=== PATIENT | male | born 1945 | race Two or more races ===

== ENCOUNTER 2024-04-26 10:22 | Emergency (ER) | payer OTHER, SELFPAY ==
[2024-04-26 10:23] VITALS: BMI 29.0
--- NOTE | 2024-04-26 10:36 | EKG_ITS ---
[facility] Test Date: 2024-04-26 Pat Name: GARRY DAMON Department: Room: - Gender: Male Museum Technician: : 1945 Requested By: Rj Rogel (DAVID) Order Number: [id number] Reading MD: Rj Rogel (STUDENT MINISTRY PASTOR) Measurements Intervals [place] Rate: 89 P: 46 [place]: 179 QRS: 266 QRSD: 143 T: 32 QT: 374 QTc: 455 Interpretive Statements SINUS RHYTHM MARKED RIGHT AXIS DEVIATION [QRS AXIS > 100] INTRAVENTRICULAR CONDUCTION DELAY [130+ ms QRS DURATION] No previous ECG available for comparison /store/S0/[id number]
[2024-04-26 10:48] VITALS: BP 133/82; PULSE 90; RESP 18; TEMP 36.7; O2SAT 97; BMI 28.5
--- NOTE | 2024-04-26 10:54 | PD.EDRME ---
Rapid Medical Screening Exam RME Arrival date/time: 04/26/24 10:22 79-year-old male presents the emergency department complains of dizziness and syncopal episode Chief Complaint: Syncope / Near Syncope Vital signs: Vital Signs Temperature 98.1 F 04/26/24 10:48 Pulse Rate 90 04/26/24 10:48 Respiratory Rate 18 04/26/24 10:48 Blood Pressure 133/82 H 04/26/24 10:48 Pulse Oximetry (%) 97 04/26/24 10:48 Oxygen Delivery Method Room Air 04/26/24 10:48
--- NOTE | 2024-04-26 10:55 | XR_ITS ---
Examination: CT brain head without contrast. 2-D sagittal coronal reconstructions Date and time of exam:April 26, 2024 1105 hours INDICATIONS: Onset dizziness today CTDI: vol (mGy):49.6 DLP: (mGycm):1038 Technique: Multiple CT axial sections of the brain have been obtained, 5 mm slice thickness. Contrast has not been administered. 2-D sagittal, coronal reconstructions have been obtained Low dose protocols were performed. One or more of the following dose reduction techniques were used; automated exposure control, adjustment of the mA and/or KV according to patient size, use of iterative reconstruction technique. Findings: No significant ventricular enlargement. Intra-axial or extra-axial hemorrhage density is not seen. No mass effect or midline shift Basal cisterns are not remarkable. Fourth ventricle is midline. Cranial vault intact. Impression: Negative for acute hemorrhage, mass effect or midline shift As clinically warranted, consider brain MRI follow-up, stroke protocol
[2024-04-26 11:26] LABS: Basophils # (Auto) 0.1 Thou/mm3 (0.0-0.2); Basophils % (Auto) 1 % (0-2.5); Eosinophils # (Auto) 0.2 Thou/mm3 (0.0-0.5); Eosinophils % (Auto) 2 % (0-10); Hematocrit 41.1 % (41.0-53.0); Hemoglobin 14.4 g/dL (13.5-16.0); Immature Granulocytes % (Auto) 0 % (0-0); Immature Granulocytes Auto 0.01 Thou/mm3 (0.00-0.00); Lymphocytes # (Auto) 2.5 Thou/mm3 (1.0-4.8); Lymphocytes % (Auto) 30 % (10-50); Mean Corpuscular Hemoglobin 30.4 pg (25.0-35.0); Mean Corpuscular Volume 87 fL (80-100); Monocytes # (Auto) 0.6 Thou/mm3 (0.0-0.8); Monocytes % (Auto) 8 % (0-12); Neutrophils # (Auto) 4.9 Thou/mm3 (1.8-7.7); Neutrophils % (Auto) 59 % (37-80); Nucleated Red Blood Cell % 0 /100 WBC (0); Platelet Count 213 Thou/mm3 (140-440); RDW Standard Deviation 41.7 fL (35.1-43.9); Red Blood Count 4.74 Miln/mm3 (4.50-5.90); White Blood Count 8.2 Thou/mm3 (3.8-10.6)
--- NOTE | 2024-04-26 11:29 | EDNOTE_ITS ---
ED Syncope RME/HPI General Chief Complaint: Syncope / Near Syncope Stated Complaint: DIZZINESS; SYNCOPE WITH LOC AT CLINIC Time Seen by Provider: 04/26/24 11:26 Arrival date/time: 04/26/24 10:22 RME / HPI RME / HPI narrative: 79-year-old male patient came in for evaluation regarding dizziness. Onset of symptoms yesterday, patient developed sudden onset of dizziness, vertigo, and lost consciousness for few seconds. Went to the clinic, and was sent to us for further evaluation. Currently patient is not having any symptoms, patient is denying any headache denies any dizziness denies any chest pain denies any other complaints. No medication was taken prior to arrival. Related Data Previous Rx's ?Medication ?Instructions ?Recorded meclizine 25 mg tablet 25 mg PO BID PRN dizziness #30 tabs 04/26/24 Allergies Allergy/AdvReac Type Severity Reaction Status Date / Time No Known Allergies Allergy Verified 04/26/24 10:26 Review of Systems Review of Systems Narrative Review of Systems: Review of system reviewed and within normal limits except mentioned in HPI ED Exam Narrative Physical exam: VITAL SIGNS: Reviewed. GENERAL APPEARANCE: Alert and interactive, follows commands, no acute distress, HEAD AND FACE: Non-traumatic. ENT: PERRL, pink conjunctivitis, eyelid no trauma, Mucous membrane moist. NECK: Supple, nontender, no nuchal rigidity. CHEST: No tenderness, no crepitus, no paradoxical movement, no retractions. LUNGS: Clear, well ventilated, symmetric, no rales, no wheezing, no ronchi, no stridor, good breath sounds bilaterally. HEART: Regular rate, regular rhythm, no murmur, no gallops. ABDOMEN: Soft, positive bowel sounds, nondistended, no guarding, nontender, no rebound, no masses, RECTAL: Deferred. GENITAL: Deferred. NEUROLOGICAL: Gross motor function intact sensory function intact, Appropriate for age. MUSCULOSKELETAL: low back nontender, full range of motion. EXTREMITIES: Nontender, full range of motion. SKIN: Color pink, dry, no rash, no lacerations, no abrasions, no contusions. LYMPHATICS: Deferred. Course Quality Measures none Orders Category Date Time Status EKG (ED ONLY) *Do not use* NOW Care 04/26/24 10:[address] head/brain wo con Stat Exams 04/26/24 10:55 Completed EKG (ED Only) Stat Exams 04/26/24 10:36 Draft B-Type Natriuretic Peptide Stat Lab 04/26/24 11:00 Completed CBC Stat Lab 04/26/24 11:00 Completed Comprehensive Metabolic Panel Stat Lab 04/26/24 11:00 Completed Magnesium Stat Lab 04/26/24 11:00 Completed Partial Thromboplastin Time Stat Lab 04/26/24 11:00 Completed Prothrombin Time with INR Stat Lab 04/26/24 11:00 Completed Troponin I Stat Lab 04/26/24 11:00 Completed Urinalysis Stat Lab 04/26/24 13:06 Completed Magnesium Oxide [Mag-Ox 400] Med 04/26/24 14:07 Discontinued 800 mg PO X1 ONE Vital Signs Vital signs: Vital Signs Temperature 98.1 F 04/26/24 10:48 Pulse Rate 90 04/26/24 10:48 Respiratory Rate 18 04/26/24 10:48 Blood Pressure 133/82 H 04/26/24 10:48 Pulse Oximetry (%) 97 04/26/24 10:48 Oxygen Delivery Method Room Air 04/26/24 10:48 Syncope MDM Narrative MDM Narrative:: 79-year-old male patient came in for evaluation regarding dizziness. Onset of symptoms yesterday, patient developed sudden onset of dizziness, vertigo, and lost consciousness for few seconds. Went to the clinic, and was sent to us for further evaluation. Currently patient is not having any symptoms, patient is denying any headache denies any dizziness denies any chest pain denies any other complaints. No medication was taken prior to arrival. CT scan of the head came back unremarkable. Patient's workup also came back unremarkable. Except for magnesium 1.4. Results discussed with the patient. Patient data External records reviewed:: None Clinical information provided by:: patient Social determinants that could affect healthcare access:: none Patient has the following chronic illnesses:: None How is presenting disease/condition affected by chronic disease/condition?: uneffected by Evaluation data The following diagnostics were reviewed and interpreted by me:: lab results, radiology exam(s) and EKG tracing(s) Lab and/or radiology exams considered but not ordered:: None Interpretation Summary: See results in MDM. EKG as interpreted by me showed sinus rhythm, ventricular rate of 59 bpm, no ST segment elevation depression noted. Medications / Prescriptions Medications or Prescriptions considered but not ordered:: None Medication administrations:: Medication Administration History Discontinued Medications Magnesium Oxide (Magnesium Oxide 400 Mg Tablet) 800 mg PO X1 ONE Stop: 04/26/24 14:08 Magnesium oxide Consultations Consultation(s) initiated? (list below): No Diagnosis Syncope Differential Diagnosis: vasovagal syncope and other (Dizziness, vertigo) Most likely diagnosis given after review of the tests above:: Dizziness Admission Indicated Admission indicated?: not indicated Admission Request Was there a request for admission?: No Disposition Plan Disposition Plan: Discharge Discharge Attestation Discharge Attestation: The patient and all family members were given an opportunity to ask questions and understood the discharge instructions. Discharge instructions specifically effects, indications for sooner follow up or return to the emergency department, and the expected course of current diagnosis. Patient condition: Stable Discharge Plan Plan Patient Disposition: HOME (Self Care) Disposition Comment: stable Prescriptions/Referrals Prescriptions/Med Rec: New meclizine 25 mg tablet 25 mg PO BID PRN (Reason: dizziness) Qty: 30 0RF Referrals: No Primary/Family,Physician [Primary Care Provider] - In 1 week Problem List Clinical Impression: Dizziness Patient/Caregiver Discharge Instructions Discharge Activity: activity as tolerated Education Materials: ED Dizziness, Uncertain Cause Additional Instructions: Thank you for the opportunity for serving you today. You are stable for discharged . You are advised to: Follow-up with your PCP in 1 to 2 days Return to ED for worsening of symptoms Increase oral fluids Take medication as prescribed Print Language: Armenian Stand Alone Forms: Adriana Award Info., Patient Portal Info Letter NOMAN/DENZEL Supervising Physician NOMAN/DENZEL Supervising Physician: MD Jimmy
[2024-04-26 11:38] LABS: Partial Thromboplastin Time 26.6 Seconds (22.0-36.0); Prothrombin Time 11.4 Seconds (9.0-12.2)
[2024-04-26 11:40] LABS: B-Type Natriuretic Peptide 147 pg/mL (0-100)
[2024-04-26 11:47] LABS: Alanine Aminotransferase 15 U/L (10-49); Albumin, Serum 5.1 gm/dL (3.4-4.8); Albumin/Globulin Ratio 1.9 (1.2-2.2); Alkaline Phosphatase 76 U/L (46-116); Anion Gap 9 (7-16); Aspartate Amino Transferase 28 U/L (0-34); BUN/Creatinine Ratio 11 Ratio (12-20); Bilirubin,Total 1.4 mg/dL (0.3-1.2); Blood Urea Nitrogen 11 mg/dL (9-23); Calcium 10.2 mg/dL (8.3-10.6); Calcium (Corrected) 10.2 mg/dL (8.5-10.1); Carbon Dioxide 26.9 mMol/L (20.0-31.0); Chloride 101 mMol/L (98-107); Estimated Creatinine Clearance 61.6 mL/min (>60); Globulin 2.7 gm/dL (2.3-3.5); Glucose 132 mg/dL (74-106); Magnesium 1.4 mg/dL (1.6-2.6); Osmolality,Calculated 275 (275-295); Potassium 4.1 mMol/L (3.4-5.1); Sodium 137 mMol/L (136-145); Total Protein 7.8 gm/dL (5.7-8.2); Troponin I < 0.020 ng/mL (0.0-0.045); eGFR > 60 See Note
[2024-04-26 13:14] LABS: Collection Type, Urine Clean Catch
[2024-04-26 13:15] VITALS: BP 157/81; PULSE 77; RESP 18; TEMP 37; O2SAT 98
[2024-04-26 13:27] LABS: Bilirubin,Urine Negative (Negative); Blood,Urine Negative (Negative); Clarity,Urine Clear (Clear/Hazy); Color,Urine Yellow (Lt Yel-Yel); Glucose, Urine Negative (Negative); Hyaline Casts,Urine 1 /hpf (0-1); Ketones,Urine Negative (Negative); Leukocyte Esterase,Urine Negative (Negative); Nitrite,Urine Negative (Negative); Protein,Urine Trace (Neg - Trace); RBC,Urine 2 /hpf (0-3); Specific Gravity,Urine 1.019 (1.001-1.035); Squamous Epithelial Cell,Urine 3 /hpf (0-5); Urobilinogen,Urine Negative mg/dL (0.0-1.0); WBC,Urine 1 /hpf (0-5)
[2024-04-26] MEDS: MAGNESIUM OXIDE 400 MG TABLET 800 MG PO (15:02)
== END 2024-04-26 15:05 | disposition home or self-care (01) ==
PROVIDERS: Nurse Practitioner Primary Care; Emergency Provider Emergency Medicine
DX: R42 Dizziness and giddiness (principal)
CPT/HCPCS: 36415; 70450; 80053; 81001; 83735; 83880; 84484; 85025; 85610; 85730; 93005; 99284; A9270

== ENCOUNTER → 2024-10-24 | Outpatient (CLI) | payer OTHER, SELFPAY ==
--- NOTE | 2024-10-24 12:11 | EKG_ITS ---
[facility] Test Date: 2024-10-24 Pat Name: GARRY DAMON Department: Room: - Gender: Male Director Treasurer: MESHA : 1945 Requested By: Jessie Morris Order Number: [id number] Reading MD: Jessie Morris Measurements Intervals [place] Rate: 51 P: 37 [place]: 192 QRS: -5 QRSD: 149 T: -1 QT: 472 QTc: 437 Interpretive Statements SINUS BRADYCARDIA INDETERMINATE AXIS INTRAVENTRICULAR CONDUCTION DELAY [130+ ms QRS DURATION] INFERIOR MYOCARDIAL INFARCTION , PROBABLY OLD [40+ ms Q WAVE AND/OR ST/T ABNORMALITY IN II/aVF] Compared to ECG 04/26/2024 10:56:39 Indeterminate axis now present Myocardial infarct finding now present Sinus rhythm no longer present Right-axis deviation no longer present /store/S0/[id number].pdf
[2024-10-24 13:00] LABS: Basophils # (Auto) 0.0 Thou/mm3 (0.0-0.2); Basophils % (Auto) 1 % (0-2.5); Eosinophils # (Auto) 0.3 Thou/mm3 (0.0-0.5); Eosinophils % (Auto) 4 % (0-10); Hematocrit 35.4 % (41.0-53.0); Hemoglobin 12.6 g/dL (13.5-16.0); Immature Granulocytes Auto 0.03 Thou/mm3 (0.00-0.00); Lymphocytes # (Auto) 2.8 Thou/mm3 (1.0-4.8); Lymphocytes % (Auto) 35 % (10-50); Mean Corpuscular HGB Conc 35.6 g/dl (31.0-37.0); Mean Corpuscular Hemoglobin 30.4 pg (25.0-35.0); Mean Corpuscular Volume 86 fL (80-100); Monocytes # (Auto) 0.7 Thou/mm3 (0.0-0.8); Monocytes % (Auto) 9 % (0-12); Neutrophils # (Auto) 4.2 Thou/mm3 (1.8-7.7); Neutrophils % (Auto) 52 % (37-80); Nucleated Red Blood Cell # 0.00 Thou/mm3 (0.00-0.00); Nucleated Red Blood Cell % 0 /100 WBC (0); Platelet Count 196 Thou/mm3 (140-440); RDW Standard Deviation 43.8 fL (35.1-43.9); Red Blood Count 4.14 Miln/mm3 (4.50-5.90); White Blood Count 8.2 Thou/mm3 (3.8-10.6)
[2024-10-24 13:18] LABS: Anion Gap 11 (7-16); BUN/Creatinine Ratio 18 Ratio (12-20); Blood Urea Nitrogen 18 mg/dL (9-23); Calcium 9.3 mg/dL (8.3-10.6); Carbon Dioxide 22.7 mMol/L (20.0-31.0); Chloride 101 mMol/L (98-107); Creatinine (Component) 1.0 mg/dL (0.6-1.3); Glucose 101 mg/dL (74-106); INR 1.0 (0.9-1.3); Osmolality,Calculated 272 (275-295); Partial Thromboplastin Time 28.1 Seconds (22.0-36.0); Potassium 4.3 mMol/L (3.4-5.1); Prothrombin Time 11.2 Seconds (9.0-12.2); Sodium 135 mMol/L (136-145); eGFR > 60 See Note
[2024-10-24 18:24] VITALS: BMI 27.3
== END | disposition home or self-care (01) ==
LOC: SLAB 10-27 07:17
PROVIDERS: PCP Family Medicine; Referring Provider Internal Medicine; Visit Provider Internal Medicine
DX: Z01.812 Encounter for preprocedural laboratory examination (principal); R55 Syncope and collapse; Z01.810 Encounter for preprocedural cardiovascular examination
CPT/HCPCS: 36415; 80048; 85025; 85610; 85730; 93005

== ENCOUNTER 2024-11-30 06:38 | Day surgery (SDC) | payer OTHER, SELFPAY ==
--- NOTE | 2024-11-29 07:00 | EKG_ITS ---
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
[2024-11-29 12:04] LABS: Basophils # (Auto) 0.0 Thou/mm3 (0.0-0.2); Basophils % (Auto) 0 % (0-2.5); Eosinophils # (Auto) 0.3 Thou/mm3 (0.0-0.5); Eosinophils % (Auto) 4 % (0-10); Hematocrit 37.6 % (41.0-53.0); Hemoglobin 12.9 g/dL (13.5-16.0); Immature Granulocytes Auto 0.02 Thou/mm3 (0.00-0.00); Lymphocytes # (Auto) 2.4 Thou/mm3 (1.0-4.8); Lymphocytes % (Auto) 34 % (10-50); Mean Corpuscular HGB Conc 34.3 g/dl (31.0-37.0); Mean Corpuscular Hemoglobin 30.6 pg (25.0-35.0); Mean Corpuscular Volume 89 fL (80-100); Monocytes # (Auto) 0.6 Thou/mm3 (0.0-0.8); Monocytes % (Auto) 9 % (0-12); Neutrophils # (Auto) 3.8 Thou/mm3 (1.8-7.7); Neutrophils % (Auto) 53 % (37-80); Nucleated Red Blood Cell # 0.00 Thou/mm3 (0.00-0.00); Nucleated Red Blood Cell % 0 /100 WBC (0); Platelet Count 189 Thou/mm3 (140-440); RDW Standard Deviation 45.1 fL (35.1-43.9); Red Blood Count 4.22 Miln/mm3 (4.50-5.90); White Blood Count 7.1 Thou/mm3 (3.8-10.6)
[2024-11-29 12:13] LABS: INR 1.0 (0.9-1.3); Partial Thromboplastin Time 27.0 Seconds (22.0-36.0); Prothrombin Time 11.0 Seconds (9.0-12.2)
[2024-11-29 12:14] LABS: Anion Gap 8 (7-16); BUN/Creatinine Ratio 19 Ratio (12-20); Blood Urea Nitrogen 19 mg/dL (9-23); Calcium 10.2 mg/dL (8.3-10.6); Carbon Dioxide 26.4 mMol/L (20.0-31.0); Chloride 101 mMol/L (98-107); Creatinine (Component) 1.0 mg/dL (0.6-1.3); Glucose 114 mg/dL (74-106); Osmolality,Calculated 273 (275-295); Potassium 4.3 mMol/L (3.4-5.1); Sodium 135 mMol/L (136-145); eGFR > 60 See Note
[2024-11-29 12:21] LABS: COVID-19 Antigen (In-House) Negative (Negative)
[2024-11-30] VITALS (12 sets, daily range): BP systolic 118–199; BP diastolic 61–91; PULSE 55–91; RESP 12–19; TEMP 36.3–36.6; O2SAT 96–99
[2024-11-30] MEDS: DIAZEPAM 5 MG TABLET PO (07:20)
--- NOTE | 2024-11-30 07:58 | PD.CARDCATH ---
Cardiac Cath Procedure Procedure Narrative Date of the procedure 11/30/2024 Title of the procedure 1.left heart catheterization 2.left coronary angiogram 3.right coronary angiogram 4.left ventriculogram 5.conscious sedation 6.radiographic interpretation supervision 7.ultrasound guidance for right radial access Indication for the procedure 79-year-old gentleman with hypertension hyperlipidemia Complains of atypical chest pain Patient is scheduled to undergo surgery Cardiolite scan was done which was abnormal Cardiac catheter and cholangiogram recommended Procedure This was done in the cardiac lab under current electrocardiographic monitoring Intermittent blood pressure monitoring right radial access obtained using modified Seldinger technique and ultrasound guidance 6 [place] sheath was placed TIG 4 catheter was used for selective engagement of the left coronary artery TIG 4 catheter was used for selective images right coronary artery TIG 4 catheter used for left ventriculogram Hemodynamics Overall left regular systolic function appears normal Approximate ejection fraction 55% End-diastolic pressure was 18 mmHg There is no gradient across the aortic valve Coronary anatomy 1.left main coronary artery appears normal 2.left anterior descending artery is no significant lesion 3.diagonal appears to show luminal regularities 4.circumflex is a large vessel no significant lesion noted 5.obtuse marginal appears normal 6.right coronary is a dominant vessel, no significant lesion noted 7.PDA arises from the right coronary artery has minor luminal irregularities Conclusion No significant coronary lesion Patient is considered to be in optimal condition for the planned surgical procedure
--- NOTE | 2024-11-30 08:36 | PC.NURSE ---
0306 patient is awake, alert, breathing unlabored, s/p LHC by Dr. Morris, TR band present to right wrist, small amount of bruising noted to proximal to TR band, no active bleeding or hematoma noted. Report received from Rj PITTMAN. [id number] patient sitting in [place] eating breakfast tray, right wrist remains clean, dry with no active bleeding or hematoma
--- NOTE | 2024-11-30 08:43 | PC.NURSE ---
report given to Rj PITTMAN
== END 2024-11-30 11:00 | disposition home or self-care (01) ==
PROVIDERS: PCP Family Medicine; Referring Provider Internal Medicine; Visit Provider Internal Medicine
PROC: (CPT 93458; principal; 2024-11-30 07:45)
DX: R07.89 Other chest pain (principal); E78.5 Hyperlipidemia, unspecified; I10 Essential (primary) hypertension; E11.9 Type 2 diabetes mellitus without complications; R55 Syncope and collapse; R42 Dizziness and giddiness; Z01.810 Encounter for preprocedural cardiovascular examination; R00.1 Bradycardia, unspecified
CPT/HCPCS: 93458; 36415; 80048; 85025; 85610; 85730; 87811; 93005; 99152; A4216; A4649; C1769; C1887; C1894; J0168; J0461; J0583; J1643; J2250; J2312; J2371; J2405; J3010; J3490; Q9967; A9270